=== PATIENT | female | born 1960 | race Two or more races ===

== ENCOUNTER 2016-09-05 08:39 | Emergency (ER) | payer SELFPAY ==
--- NOTE | ~2016-09-05 | CR72 ---
[facility] A Service of [facility] RADIOLOGY TEXT RESULTS PATIENT: CLEOPATRA ABRAMS LOCATION: [facility] : 64 UNIT #: [id number] AGE: [address]: Giovanni Hancock MD SEX: F ORDER DR: [id number] [facility]. [place], [place] [address] [id number] MR#: [id number] Acc #: [id number] NAME: CLEOPATRA ABRAMS : 1960 SEX: F STUDY DATE/TIME: 09/05/2016 09:46 UNIT: [facility] ROOM: STUDY DESCRIPTION: CR Chest Single View Portable Attending Physician: Giovanni Hancock M.D. Ordering Physician: Giovanni Hancock M.D. Primary Care Physician: Primary Care Physician No MEDICAL IMAGING REPORT This report is preliminary unless electronic signature is present EXAM Chest portable 09/05/2016 0946 hours HISTORY 55-year-old complaining of chest discomfort and breast soreness. Breast soreness has been present for 1 week with chest discomfort since yesterday. COMPARISON None. FINDINGS Single upright portable view demonstrates extremely low lung volumes. Allowing for this, the heart size is felt within normal limits. There is perihilar and basilar vascular crowding. No definite edema, pneumonia or effusion is seen however exam is limited by the extremely low lung volumes. Consider an upright two-view chest film when possible. IMPRESSION Extremely low lung volumes. Heart size is likely within normal limits. There is perihilar and basilar vascular crowding. No definite acute pulmonary density. Consider further evaluation with an upright PA and lateral view of the chest to better evaluate the lungs when possible. Dictated by... Jeni Schilling M.D. THIS IS AN ELECTRONICALLY VERIFIED REPORT Jeni Schilling M.D. at 09/05/2016 2:27 PM MIMI/romario TD: 09/05/2016 11:21 [facility] A Service of [facility] RADIOLOGY TEXT RESULTS PATIENT: CLEOPATRA ABRAMS LOCATION: [facility] #: [id number] : [birth year] UNIT #: [id number] AGE: [address]: Giovanni Hancock MD SEX: F ORDER DR: LILIA #: [id number] MEDICAL IMAGING REPORT Page 1 of 1 COPY
[~2016-09-05 08:39] MED LIST: AMARYL PO; ASPIRIN EC81 M1 PO; DICYCLOMINE HCL20 MG PO; FAMOTIDINE20 MG PO; FLEXERIL10 MG PO; HYDROCODON-ACE1 EACH PO; HYZAAR 100-25 T1 TAB PO; LEVOTHROID100 MC1 PO; METFORMIN HCL1000 M1 PO; MOTRIN600 M1 PO; PHENERGAN25 M1 PO; PRAVASTATIN SOD40 MG PO
[2016-09-05 10:08] LABS: POC - CKMB <1.0 ng/mL (0.0-7.9); POC - TROPONIN <0.05 ng/mL (<=0.05)
[2016-09-05 10:13] LABS: BASOPHIL% 0.2 % (0-2.5); EOSINOPHIL% 0.4 % (0.0-7.0); HEMATOCRIT 42.4 % (35.0-45.0); HEMOGLOBIN 14.2 gm/dL (12.0-16.0); LYMPHOCYTE# 2.6 X10e3 (1.0-3.5); LYMPHOCYTE% 27.7 % (17.0-45.0); MEAN CELL VOLUME 81.6 FL (83-96); MEAN CORPUSCULAR HEMOGLOBIN 27.4 PG (28-34); MEAN CORPUSCULAR HGB CONC 33.5 g/dL (30-36); MEAN PLATELET VOLUME 8.3 FL (6.5-11.5); MONOCYTE# 0.5 X10e3 (0-1.0); MONOCYTE% 5.6 % (3.0-12.0); NEUTROPHIL# 6.3 X10e3 (1.5-7.1); NEUTROPHIL% 66.1 % (40-75); PLATELET COUNT 214 X10e3 (140-420); RED CELL DISTRIBUTION WIDTH 13.4 % (11.0-15.5); WHITE BLOOD COUNT 9.5 X10e3 (4.0-10.5)
[2016-09-05 10:16] LABS: DIFF IND NO
[2016-09-05 10:45] LABS: INFLUENZA A NEG (NEG); INFLUENZA B NEG (NEG)
[2016-09-05 10:45] LABS: ALBUMIN SERUM 3.8 g/dL (3.5-5.0); BILIRUBIN, DIRECT 0.1 mg/dL (0.0-0.2); BILIRUBIN,INDIRECT 0.3 mg/dL (0.0-0.9); BILIRUBIN,TOTAL 0.4 mg/dL (0.2-2.0); CALCIUM SERUM 8.9 mg/dL (8.4-10.2); CREATININE SERUM 0.3 mg/dL (0.6-1.4); GLOM FILT RATE Estimated 130.8 mL/min (>60); POTASSIUM 3.1 mmol/L (3.5-5.1); PROTEIN TOTAL SERUM 6.7 g/dL (6.0-8.3)
== END 2016-09-05 12:20 | disposition home or self-care (01) ==
LOC: CED 08:39
PROVIDERS: Emergency Medicine
DX: E87.6 Hypokalemia (principal); Z79.4 Long term (current) use of insulin; I10 Essential (primary) hypertension
CPT/HCPCS: 36415; 71010; 80048; 80076; 82553; 82947; 84484; 85025; 87651; 87804; 96361; 96374; 99284; J2405

== ENCOUNTER 2016-12-17 08:37 | Emergency (ER) | payer OTHER ==
[~2016-12-17] VITALS: Ht 152.4 cm; Wt 72.6 kg
--- NOTE | ~2016-12-17 | CT2 ---
[facility] A Service of [facility] RADIOLOGY TEXT RESULTS PATIENT: CLEOPATRA VAUGHN LOCATION: [facility] : 64 UNIT #: [id number] AGE: [address]: Joann Camp MD SEX: F ORDER DR: [id number] [facility] [address] [place], [place] [address] [id number] E MR#: [id number] Acc #: [id number] NAME: CLEOPATRA VAUGHN : 1960 SEX: F STUDY DATE/TIME: 12/17/2016 14:17 UNIT: [facility] ROOM: STUDY DESCRIPTION: CT Abd and Pelv W Cont Attending Physician: Joann Camp M.D. Ordering Physician: Joann Camp M.D. MEDICAL IMAGING REPORT This report is preliminary unless electronic signature is present EXAM CT abdomen and pelvis with contrast 12/17/2016 HISTORY Abdominal pain with nausea, vomiting and right upper quadrant. Abdominal pain since yesterday. COMPARISON None. TECHNIQUE 5 mm axial images from lung bases lesser trochanters after intravenous contrast administration. Enteric contrast was not administered. Sagittal and coronal reformatted images were obtained. This CT exam was performed with one or more of the following radiation dose reduction techniques: automatic exposure control, adjustment of mA and/or kV according to patient size, and iterative reconstruction. FINDINGS ABDOMEN: Benign calcified granulomas is present in the left lower lobe. Lung bases are free of consolidation. The liver is diffusely steatotic but does not appear enlarged or cirrhotic. No focal liver lesions are identified. Cholecystectomy changes. No abnormal biliary dilation is seen. The spleen, pancreas, adrenals and kidneys are within normal limits. There is a small ventral hernia in the upper abdomen just to the right of midline containing only fat, measuring about 2.5 x 0.9 cm. There is a moderate generalized colonic stool burden. No evidence of high-grade large or small bowel obstruction. The appendix is normal. No adenopathy or free fluid is identified. [facility] A Service of [facility] RADIOLOGY TEXT RESULTS PATIENT: CLEOPATRA VAUGHN [id number] [birth year] UNIT #: [id number] AGE: [address]: Joann Camp MD SEX: F ORDER DR: PELVIS: Urinary bladder, uterus and rectum are normal. No pelvic adenopathy or free fluid is seen. No acute osseous abnormalities are identified. IMPRESSION 1. No acute findings within the abdomen and pelvis. 2. Moderate colonic stool burden. No evidence of high-grade bowel obstruction or active bowel inflammation. The appendix is normal. 3. Small ventral hernia in the upper abdomen, just to the right of midline, containing only fat. 4. Diffuse hepatic steatosis. 5. Cholecystectomy. Dictated by... Manisha Carmona M.D. THIS IS AN ELECTRONICALLY VERIFIED REPORT Manisha Carmona M.D. at 12/18/2016 12:27 PM CECE/rosalio TD: 12/17/2016 16:17 JOB #: [id number] MEDICAL IMAGING REPORT Page 1 of 1 COPY
[2016-12-17 09:16] LABS: BASOPHIL% 0.3 % (0-2.5); EOSINOPHIL# 0.1 X10e3 (0-0.7); EOSINOPHIL% 1.3 % (0.0-7.0); HEMATOCRIT 41.9 % (35.0-45.0); HEMOGLOBIN 14.4 gm/dL (12.0-16.0); LYMPHOCYTE# 2.6 X10e3 (1.0-3.5); LYMPHOCYTE% 48.1 % (17.0-45.0); MEAN CORPUSCULAR HEMOGLOBIN 27.8 PG (28-34); MEAN CORPUSCULAR HGB CONC 34.4 g/dL (30-36); MEAN PLATELET VOLUME 8.3 FL (6.5-11.5); MONOCYTE# 0.2 X10e3 (0-1.0); MONOCYTE% 4.1 % (3.0-12.0); NEUTROPHIL# 2.5 X10e3 (1.5-7.1); NEUTROPHIL% 46.2 % (40-75); PLATELET COUNT 194 X10e3 (140-420); RED BLOOD COUNT 5.18 X10e (3.90-5.30); RED CELL DISTRIBUTION WIDTH 12.8 % (11.0-15.5); WHITE BLOOD COUNT 5.3 X10e3 (4.0-10.5)
[2016-12-17 09:19] LABS: DIFF IND NO
[2016-12-17 09:59] LABS: ALBUMIN SERUM 4.1 g/dL (3.5-5.0); BILIRUBIN, DIRECT 0.1 mg/dL (0.0-0.2); BILIRUBIN,INDIRECT 0.5 mg/dL (0.0-0.9); BILIRUBIN,TOTAL 0.6 mg/dL (0.2-2.0); CALCIUM SERUM 8.8 mg/dL (8.4-10.2); CREATININE SERUM 0.5 mg/dL (0.6-1.4); GLOM FILT RATE Estimated 110.5 mL/min (>60); POTASSIUM 3.6 mmol/L (3.5-5.1); PROTEIN TOTAL SERUM 7.1 g/dL (6.0-8.3)
[2016-12-17 10:59] LABS: URINE SOURCE CLEAN CATCH
[2016-12-17 11:06] LABS: URINE APPEARANCE CLEAR; URINE BILIRUBIN NEG (NEG); URINE BLOOD NEG (NEG); URINE COLOR YELLOW; URINE GLUCOSE >1000 MG/DL (NEG); URINE KETONE NEG (NEG); URINE LEUKOCYTE ESTERASE NEG (NEG); URINE NITRATE NEG (NEG); URINE PH 7.5 (5-8); URINE PROTEIN NEG (NEG); URINE SPECIFIC GRAVITY 1.018 (1.003-1.035); URINE UROBILINOGEN 0.2 MG/DL (NEG)
[2016-12-17 11:16] LABS: CULTURE INDICATED? NO
== END 2016-12-17 16:31 | disposition home or self-care (01) ==
LOC: CED 08:37 → CEDOF 16:44 → CED 16:44
PROVIDERS: Emergency Medicine
DX: R10.11 Right upper quadrant pain (principal); I10 Essential (primary) hypertension; E11.9 Type 2 diabetes mellitus without complications
CPT/HCPCS: 36415; 74177; 80048; 80076; 81003; 82150; 82947; 83690; 85025; 96361; 96374; 99284; J2405; Q9967